=== PATIENT | female | born 1995 | race African-American/Black ===

== ENCOUNTER 2024-01-11 23:37 | Emergency (ER) | payer OTHER ==
[2024-01-12 00:27] LABS: Bacteria/HPF None Seen HPF (None Seen); Bilirubin Negative (Negative); Blood, Urine Trace (Negative); CAUTI Indications for Culture Pelvic or flank pain; Clarity Clear (Clear); Glucose, Urine (Dipstick) Normal (Negative); Ketone, Urine Negative (Negative); Leukocyte 250 Leu/uL (Negative); Nitrite Negative (Negative); Protein, Urine (Dipstick) 20 mg/dL (Neg-Trace); Specific Gravity, Urine 1.027 (1.002-1.036); Urobilinogen Normal mg/dL (Less than 2); WBC/HPF 21-50 HPF (0-3)
[2024-01-12 00:29] LABS: Pregnancy Test - Urine (BHCG) Negative (Negative); Pregu Control Background? CLEAR/WHITE (CLR/WHITE); Pregu Control Bar Appear? YES (CONTROL BAR); Specific Gravity 1.027 (1.002-1.036); Urine Culture Reflex Yes Yes
[2024-01-12 01:03] LABS: Hematocrit 34.8 % (36.0-47.0); Hemoglobin 10.7 g/dL (12.0-16.0); Manual Diff?? YES; Mean Corpuscular HGB CONC 30.7 g/dL (32.0-36.0); Mean Corpuscular Hemoglobin 23.3 pg (27.0-31.0); Mean Corpuscular Volume 75.7 fl (78.0-98.0); Mean Platelet Volume 8.5 fL (7.4-10.4); Platelet Count 428 10x3/uL (130-400); White Blood Cell (WBC) Count 15.5 10x3/uL (4.8-10.8)
[2024-01-12 01:06] LABS: Delete Auto Diff?? YES
[2024-01-12 01:17] LABS: ALT (SGPT) 9 U/L (8-55); AST (SGOT) 9 U/L (5-34); Albumin 3.5 g/dL (3.5-5.0); Alkaline Phosphatase 81 U/L (40-110); Anion Gap 16 mmol/L (10-20); BUN (Urea Nitrogen) 10 mg/dL (7.0-18.7); Bilirubin, Total 0.2 mg/dL (0.2-1.2); Calc. Creatinine Clearance 0 mL/min (70-130); Calcium 8.4 mg/dL (7.8-10.44); Carbon Dioxide 22 mmol/L (22-29); Chloride 106 mmol/L (98-107); Estimated GFR 106; Globulin 3.8 g/dL (2.4-3.5); Glucose 109 mg/dL (70-105); Potassium 3.7 mmol/L (3.5-5.1); Protein, Total 7.3 g/dL (6.0-8.3); Sodium 140 mmol/L (136-145)
[2024-01-12 01:33] LABS: Anisocytosis MODERATE=16-30 cells HPF (0-5); Band 1 % (5-11); CellaVision Operator ID lab.sh2; Eosinophils 1 % (0-10); Hypochromia SLIGHT = 6-15 cells HPF (0-5); Large Platelets 2.1 % (0-5); Lymphocytes 54 % (21-51); Monocytes 3 % (0-10); Neutrophil 41 % (42-75); Ovalocytes SLIGHT = 2-5 cells HPF (0-1); Platelet Adequacy Comment Platelets Increased; Polychromasia SLIGHT = 2-3 cells HPF (0-2); Smudge Cells 44.8 %; Total Cell Count 96
[2024-01-12] MEDS ORDERED: Morphine 4 MG/ML VIAL ONE (01:57)
[2024-01-12] MEDS ORDERED: Ondansetron PF 4 MG/2 ML Vial ONE (01:58)
[2024-01-12 02:10] LABS: Lipase 15 U/L (8-78); Magnesium 2.1 mg/dL (1.6-2.6)
[2024-01-12] MEDS ORDERED: cefTRIAXone (ROCEPHIN) 1 GM VIAL ONE (02:25)
[2024-01-12] MEDS ORDERED: Sodium Chloride 0.9% 100 ML ONE (02:25)
== END 2024-01-12 04:16 | disposition home or self-care (01) ==
LOC: ERS 23:37
DX: N83.201 Unspecified ovarian cyst, right side (principal); N39.0 Urinary tract infection, site not specified; E11.9 Type 2 diabetes mellitus without complications; Z55.6 Problems related to health literacy
CPT/HCPCS: 36415; 74177; 80053; 81001; 81025; 83690; 83735; 85025; 87086; 96365; 96366; 96375; J0696; J2270; J2405; J3490